=== PATIENT | male | born 1995 | race Caucasian/White ===

== ENCOUNTER 2019-11-22 10:06 | Emergency (ER) | payer MEDICAID, MEDICARE ==
[~2019-11-22] VITALS: Ht 175.3 cm; Wt 92.0 kg
[2019-11-22 10:23] VITALS: BP 126/61
== END 2019-11-22 21:15 | disposition left against medical advice (07) ==
LOC: ER 10:06
DX: Z53.21 Procedure and treatment not carried out due to patient leaving prior to being seen by health care provider (principal)